=== PATIENT | female | born 2000 | race Caucasian/White ===

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

== ENCOUNTER 2020-07-21 11:37 | Outpatient (CLI) | payer OTHER, MEDICAID ==
[2020-07-21 12:15] LABS: BASOPHILS # (AUTO) 0.1 10^3/uL (0.0-0.1); BASOPHILS % (AUTO) 0.7 %; EOSINOPHILS # (AUTO) 0.1 10^3/uL (0.0-0.7); EOSINOPHILS % (AUTO) 1.2 %; HGB - HEMOGLOBIN 13.3 g/dL (12.0-16.0); LYMPHOCYTES # (AUTO) 2.4 10^3/uL (1.5-3.5); LYMPHOCYTES % (AUTO) 28.4 %; MEAN CORPUSCULAR HEMOGLOBIN 28.6 pg (27.0-31.0); MEAN CORPUSCULAR HGB CONC 32.9 g/dL (32.0-36.0); MEAN CORPUSCULAR VOLUME 86.9 fL (81.0-99.0); MEAN PLATELET VOLUME 9.6 fL (7.9-10.8); MONOCYTES # (AUTO) 0.4 10^3/uL (0.0-1.0); MONOCYTES % (AUTO) 4.8 %; NEUTROPHILS # (AUTO) 5.5 10^3/uL (1.5-6.6); NEUTROPHILS % (AUTO) 64.5 %; PLT - PLATELET COUNT 359 10^3/uL (130-450); RED BLOOD COUNT 4.65 10^6/uL (4.20-5.40); RED CELL DISTRIBUTION WIDTH 13.1 % (12.0-15.0); WHITE BLOOD COUNT 8.5 x10^3/uL (4.8-10.8)
[2020-07-21 12:34] LABS: ALBUMIN 3.9 g/dL (3.2-5.5); ALBUMIN/GLOBULIN RATIO 1.1 (1.0-2.2); ALKALINE PHOSPHATASE 51 IU/L (42-121); ALT ALANINE AMINOTRANSFERASE 15 IU/L (10-60); AST ASPARTATE AMINOTRANSFERASE 16 IU/L (10-42); BILIRUBIN,TOTAL 0.4 mg/dL (0.2-1.0); BUN - BLOOD UREA NITROGEN 11 mg/dL (6-20); CARBON DIOXIDE - CO2 25 mmol/L (21-32); CHLORIDE 104 mmol/L (101-111); CHOL/HDL RATIO 3.4 (<4.4); CHOLESTEROL 159 mg/dL; CREATININE 0.7 mg/dL (0.4-1.0); GAMMA GLUTAMYL TRANSPEPTIDASE 12 IU/L (8-38); GLUCOSE 96 mg/dL (70-100); HDL CHOLESTEROL 47 mg/dL; PHOSPHORUS 2.9 mg/dL (2.5-4.6); SODIUM 138 mmol/L (135-145); TOTAL PROTEIN 7.4 g/dL (6.7-8.2); URIC ACID 5.8 mg/dL (2.6-7.2)
[2020-07-21 12:43] LABS: T4 (THYROXINE) 8.74 ug/dL (6.09-12.23)
[2020-07-21 12:47] LABS: THYROID STIMULATING HORMONE 2.44 uIU/mL (0.34-5.60)
[2020-07-21 13:00] LABS: HEMOGLOBIN A1c% 5.4 % (4.27-6.07)
== END 2020-07-21 11:38 | disposition home or self-care (01) ==
LOC: LAB 11:37
PROVIDERS: ATTEND Registered Nurse
DX: R00.8 Other abnormalities of heart beat (principal); R42 Dizziness and giddiness; G47.30 Sleep apnea, unspecified; E66.9 Obesity, unspecified
CPT/HCPCS: 36415; 80053; 80061; 82977; 83036; 83615; 83721; 84100; 84436; 84443; 84550; 85025; 93005

== ENCOUNTER 2020-09-08 13:55 | Outpatient (CLI) | payer OTHER, MEDICAID ==
--- NOTE | 2020-09-08 14:42 | CT Report ---
PROCEDURE: HEAD WO INDICATIONS: LG CONTUSION/CONCUSSION TECHNIQUE: Noncontrast 4.5 mm thick angled axial sections acquired from the foramen magnum to the vertex. For r adiation dose reduction, the following was used: automated exposure control, adjustment of mA and/or kV according to patient size. COMPARISON: None. FINDINGS: Image quality: Excellent. CSF spaces: Basal cisterns are patent. No extra-axial fluid collections. Ventricles are normal in size and shape. Brain: No midline shift. No intracranial masses or hemorrhage. Orantes-white matter interface is norm al. Skull and face: Calvarium and visualized facial bones are intact, without suspicious lesions. Sinuses: Visualized sinuses and mastoids are clear. IMPRESSION: No trauma found, no sign of intracranial hemorrhage. Reviewed by: Smith Rojas MD on 09/08/2020 2:41 PM PST Approved by: Smith Rojas MD on 09/08/2020 2:41 PM PST Station ID: [id number]
== END 2020-09-08 13:56 | disposition home or self-care (01) ==
LOC: DI 13:55
PROVIDERS: ATTEND Pediatrics
DX: S00.83XA Contusion of other part of head, initial encounter (principal); S00.03XA Contusion of scalp, initial encounter; S06.0X0A Concussion without loss of consciousness, initial encounter
CPT/HCPCS: 70450

== ENCOUNTER 2021-05-27 10:49 | Emergency (ER) | payer OTHER, MEDICAID ==
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
[2021-05-27] MEDS ORDERED: KETOROLAC 30 MG/ML VIAL IM STA (11:56)
[2021-05-27] MEDS ORDERED: HYDROmorphone 1 MG/ML CARPUJECT IM STA (11:56)
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
[2021-05-27] MEDS ORDERED: ONDANSETRON ODT 4 MG TABLET TL STA (14:05)
[2021-05-27 14:22] VITALS: BP 122/77
== END 2021-05-27 14:22 | disposition home or self-care (01) ==
LOC: ED 10:49
DX: S20.229A Contusion of unspecified back wall of thorax, initial encounter (principal); M54.5 Low back pain; R07.9 Chest pain, unspecified; W22.09XA Striking against other stationary object, initial encounter; Y92.511 Restaurant or cafe as the place of occurrence of the external cause; Y99.0 Civilian activity done for income or pay
CPT/HCPCS: 1040M; 71250; 74176; 96372; 99284; J1170; Q0162

== ENCOUNTER 2022-03-03 08:57 | Outpatient (CLI) | payer OTHER, MEDICAID | END 2022-03-03 08:58 | disposition critical access hospital (66) | LOC: EMS 08:57 | DX: R10.31 Right lower quadrant pain (principal); R55 Syncope and collapse | CPT/HCPCS: A0425; A0427 ==

== ENCOUNTER 2024-01-29 12:30 | Outpatient (CLI) | payer OTHER | END 2024-01-29 12:45 | disposition home or self-care (01) | LOC: LAB.N 12:30 | PROVIDERS: ATTEND Physician Assistant | DX: Z32.01 Encounter for pregnancy test, result positive (principal) | CPT/HCPCS: 36415; 84702 ==

== ENCOUNTER 2024-01-29 15:17 | Outpatient (CLI) | payer OTHER ==
--- NOTE | 2024-01-29 16:45 | Ultrasound Report ---
PROCEDURE: OB 1st Trimester INDICATIONS: TEST POSITIVE OUTSIDE/PRIOR DATING DATA: Last menstrual period (LMP): 12/11/2023. LMP-based estimated date of delivery (KIARRA): 09/16/2024. First dating scan (date and location): 01/29/2024. Estimated date of delivery (KIARRA) from first dating scan: 09/10/2024. TECHNIQUE: Real-time scanning was performed of the fetus and maternal pelvic organs, with image documentation. COMPARISON: None. FINDINGS: Intrauterine gestational sac present. Embryo: Present, measuring 1.51 cm, corresponding to 7 weeks 6 days. Heart rate: 158 bpm. Other: No perigestational fluid collection. Measurement variability in dating: +/- 4 weeks by LMP, +/- 7 days by mean sac diameter (use before 6 weeks gestation if crown-rump length not able to be measured), +/- 5 days by crown-rump length (6-12 weeks gestation). Maternal organs: Ovaries appear within normal limits. IMPRESSION: Single living intrauterine at 7 weeks 6 days, KIARRA of 09/10/2024. Reviewed by: Yamil Lassiter MD on 01/29/2024 4:43 PM PDT Approved by: Yamil Lassiter MD on 01/29/2024 4:43 PM PDT Station ID: [id number]
== END 2024-01-29 15:18 | disposition home or self-care (01) ==
LOC: DI 15:17
PROVIDERS: ATTEND Physician Assistant
DX: Z34.01 Encounter for supervision of normal first pregnancy, first trimester (principal)
CPT/HCPCS: 36415; 84702